=== PATIENT | male | born 2000 | race Caucasian/White ===

== ENCOUNTER 2025-05-08 11:18 | Emergency (ER) | payer OTHER, BC ==
[~2025-05-08] VITALS: Ht 188 cm; Wt 91.0 kg
[2025-05-08 12:46] VITALS: BP 140/80; TEMP 98.2; O2SAT 97
== END 2025-05-08 12:48 | disposition home or self-care (01) ==
LOC: M ED 11:18
DX: S46.011A Strain of muscle(s) and tendon(s) of the rotator cuff of right shoulder, initial encounter (principal); Y92.9 Unspecified place or not applicable; Y93.9 Activity, unspecified; Y99.0 Civilian activity done for income or pay